=== PATIENT | female | born 1975 | race Caucasian/White ===

== ENCOUNTER 2016-10-08 14:25 | Emergency (ER) | payer OTHER ==
--- NOTE | 2016-10-15 01:20 | ER ---
ADMIT: 10/08/2016 RM/LOC: ER [facility] MR#: [id number] [facility] [address] [place] [id number] ASHLEY SALAZAR [address] [place] [address] [place] [address] Emergency Room Report SEX: F AGE: 41 : 1975 DATE: 10/08/2016 CHIEF COMPLAINT: Laceration to forehead. HISTORY OF PRESENT ILLNESS: The patient is an otherwise healthy 41-year-old female who comes in after she sustained a laceration to her forehead when they were working with louisa wire when they lost control the louisa wire and it went across her forehead. Had about an hour prior to arrival. Other than the injury to her forehead, she has no other complaints at this time. PAST MEDICAL HISTORY: Unremarkable for any chronic diseases. She did have a partial hysterectomy done. She denies any medications or allergies. She is not up-to-date on her tetanus as far she knows. PHYSICAL EXAMINATION: VITAL SIGNS: Stable. HEENT: Head shows she has a laceration approximately 6 cm long to her forehead. The right half of the wound is essentially just a scratch and does not involve into dermal layers, but the left half of the wound is into the dermal layer. It is still superficial however, and not into the deep tissues. There is no active bleeding. The wound appears clean and there is no other deep trauma. The patient is not in any distress. She is breathing comfortably. No other signs of trauma to her torso or extremities. She has no injuries to her eyes. EMERGENCY DEPARTMENT COURSE: The wound was cleaned with Ultradex and saline. The wound was approximated with wound adhesive and Steri-Strips were placed and it was well-approximated. The patient was given a tetanus booster in the emergency department. She is discharged home with instructions to take care of the wound. She is to follow up with Dr. Valladares as needed. DIAGNOSIS: Superficial laceration to forehead. Hamlet Giraldo MD/ pancho JOB #: [id number] CC: Juno Ron MD, Attending Physician Darrian Valladares MD, Family Physician
== END 2016-10-08 15:03 | disposition home or self-care (01) ==
LOC: ER 14:25
PROC: 0HQ1XZZ Repair Face Skin, External Approach (ICD-10-PCS; principal; 2016-10-08)
DX: S01.81XA Laceration without foreign body of other part of head, initial encounter (principal); Z90.711 Acquired absence of uterus with remaining cervical stump; W22.8XXA Striking against or struck by other objects, initial encounter